=== PATIENT | female | born 1955 | race Caucasian/White ===

== ENCOUNTER 2017-03-03 07:54 | Emergency (ER) | payer MEDICAID ==
[2017-03-03] MEDS ORDERED: Sodium Chloride 0.9% 1,000 ML IV STA (08:12)
--- NOTE | 2017-03-03 08:18 | ED PDOC ---
HPI: Back Time Seen by Provider: 03/03/17 08:06 Chief Complaint (Nursing): Back Pain Chief Complaint (Provider): Back Pain History Per: Patient History/Exam Limitations: no limitations Onset/Duration Of Symptoms: Days Current Symptoms Are (Timing): Still Present Quality Of Discomfort: "Pain" Severity: Mild Previous Symptoms: None Associated Symptoms: None Additional Complaint(s): Patient is a 61 year old female who presents to ED for evaluation of right flank pain with radiation to the abdomen. Patient reports pain is associated with nausea. Denies vomiting, dysuria, hematuria, fever or chills. Of note, patient has a history of kidney stones, states this pain feels similar Past Medical History Reviewed: Historical Data, Nursing Documentation, Vital Signs Vital Signs: Last Vital Signs Temp 98.1 F 03/03/17 08:01 Pulse 88 03/03/17 08:01 Resp 20 03/03/17 08:01 BP 176/86 H 03/03/17 08:01 Pulse Ox 100 03/03/17 08:01 - Medical History PMH: Asthma, Kidney Stones - Surgical History Surgical History: No Surg Hx - Family History Family History: States: No Known Family Hx - Home Medications Home Medications: Ambulatory Orders Medication Instructions Recorded Albuterol HFA [Ventolin HFA 90 2 puff INH PRN PRN 03/03/17 mcg/actuation (8 g)] Alprazolam [Xanax] 0.5 mg PO BID 03/03/17 Ciprofloxacin HCl [Cipro] 500 mg PO BID #20 tab 03/03/17 Oxycodone HCl/Acetaminophen 1 tab PO PRN PRN 03/03/17 [Percocet 10-325 mg Tablet] Tamsulosin [Flomax] 0.4 mg PO DAILY #5 cap 03/03/17 traMADol [Ultram] 50 mg PO Q8 #10 tab 03/03/17 - Allergies Allergies/Adverse Reactions: Allergies Allergy/AdvReac Type Severity Reaction Status Date / Time Penicillins Allergy RASH Verified 03/03/17 08:10 Review of Systems ROS Statement: Except As Marked, All Systems Reviewed And Found Negative Constitutional: Negative for: Fever, Chills Cardiovascular: Negative for: Chest Pain Gastrointestinal: Positive for: Nausea. Negative for: Vomiting, Abdominal Pain Genitourinary Female: Negative for: Dysuria, Frequency, Hematuria Musculoskeletal: Positive for: Back Pain Physical Exam - Reviewed Nursing Documentation Reviewed: Yes Vital Signs Reviewed: Yes - Physical Exam Appears: Positive for: Non-toxic, No Acute Distress Skin: Positive for: Normal Color, Warm Eye Exam: Positive for: Normal appearance Neck: Positive for: Normal Cardiovascular/Chest: Positive for: Regular Rate, Rhythm. Negative for: Murmur Respiratory: Positive for: Normal Breath Sounds. Negative for: Respiratory Distress Gastrointestinal/Abdominal: Positive for: Normal Exam, Tenderness. Negative for : Distended Back: Positive for: Normal Inspection. Negative for: L CVA Tenderness, R CVA Tenderness Extremity: Positive for: Normal ROM Neurologic/Psych: Positive for: Alert, Oriented - Laboratory Results Result Diagrams: 03/03/17 08:30 03/03/17 08:30 - ECG O2 Sat by Pulse Oximetry: 100 (RA) Pulse Ox Interpretation: Normal Medical Decision Making Medical Decision Making: Time: 0800 Initial impression: R/O kidney stone Initial plan: -- CT-abdomen -- CMP -- Urine dip -- CBC -- NSF, Toradol and Zofran Scribe Attestation: Documented by Lila Hinton acting as a scribe for Navin Morrison MD MD Scribe Attestation: All medical record entries made by the Scribe were at my direction and personally dictated by me. I have reviewed the chart and agree that the record accurately reflects my personal performance of the history, physical exam, medical decision making, and the department course for this patient. I have also personally directed, reviewed, and agree with the discharge instructions and disposition. Disposition - Clinical Impression Clinical Impression: Kidney stone on right side - Patient ED Disposition Is Patient to be Admitted: No Counseled Patient/Family Regarding: Studies Performed, Diagnosis, Need For Followup, Rx Given - Disposition Referrals: Panchito Page MD [Staff Provider] - Disposition: Routine/Home Disposition Time: 10:58 Condition: FAIR Prescriptions: Ciprofloxacin HCl [Cipro] 500 mg PO BID #20 tab Tamsulosin [Flomax] 0.4 mg PO DAILY #5 cap traMADol [Ultram] 50 mg PO Q8 #10 tab Instructions: Kidney Stones (ED) Print Language: ETHIOPIAN
[2017-03-03 08:48] LABS: BASO % 0.6 % (0.0-2.0); EOS # 0.1 K/uL (0.0-0.7); EOS % 1.6 % (0.0-4.0); LYMPH # 2.3 K/uL (1.0-4.3); LYMPH % 29.8 % (20.0-40.0); MEAN CELL VOLUME 80.9 fl (81.0-99.0); MEAN CORPUSCULAR HEMOGLOBIN 25.4 pg (27.0-31.0); MEAN CORPUSCULAR HGB CONC 31.5 g/dL (33.0-37.0); MEAN PLATELET VOLUME 11.8 fl (7.2-11.7); MONO # 0.8 K/uL (0.0-0.8); MONO % 10.4 % (0.0-10.0); NEUT # 4.5 K/uL (1.8-7.0); NEUT % 57.6 % (50.0-75.0); RED CELL DISTRIBUTION WIDTH 13.9 % (11.5-14.5); WHITE BLOOD COUNT 7.9 K/uL (4.8-10.8)
[2017-03-03 08:56] LABS: ALKALINE PHOSPHATASE 129 U/L (38-126); ALT/SGPT 49 U/L (9-52); AST/SGOT 48 U/L (14-36); BILIRUBIN,TOTAL 0.6 mg/dl (0.2-1.3); BLOOD UREA NITROGEN 13 mg/dl (7-17); CALCIUM 9.2 mg/dL (8.4-10.2); CARBON DIOXIDE 28 mmol/L (22-30); CHLORIDE 104 mmol/L (98-107); GFR AFRICAN-AMERICAN > 60; GLUCOSE,RANDOM 115 mg/dL (65-105); POTASSIUM 4.1 MMOL/L (3.6-5.0); SODIUM 145 mmol/l (132-148); TOTAL PROTEIN 8.9 G/DL (6.3-8.2)
[2017-03-03 09:35] LABS: ALB/GLOB RATIO 0.9 (1.0-2.1)
--- NOTE | 2017-03-03 09:50 | CT ---
PROCEDURE: CT Abdomen and Pelvis without intravenous or oral contrast HISTORY: r/o kidney stone COMPARISON: None. TECHNIQUE: Contiguous axial images of the abdomen and pelvis without intravenous or oral contrast. Radiation dose: Total exam DLP = 1843.85 mGy-cm. This CT exam was performed using one or more of the following dose reduction techniques: Automated exposure control, adjustment of the mA and/or kV according to patient size, and/or use of iterative reconstruction technique. FINDINGS: LOWER THORAX: Unremarkable. LIVER: Unremarkable. GALLBLADDER AND BILE DUCTS: Unremarkable. PANCREAS: Unremarkable. No ductal dilatation. SPLEEN: Unremarkable. No splenomegaly. ADRENALS: Unremarkable. KIDNEYS AND URETERS: Unilateral, right hydronephrosis and hydroureter. Distal 2 mm calculus right ureter 2.5 cm above the ureterovesical junction. Small upper tract calculi right kidney. Left kidney: Unremarkable without evidence of calculus disease, mass or other pathologic process. BLADDER: Unremarkable. No calculus. REPRODUCTIVE: Unremarkable. APPENDIX: Prior appendectomy. STOMACH AND BOWEL: Unremarkable. No obstruction. No gross mural thickening. PERITONEUM: Unremarkable. No significant fluid collection. No free air. LYMPH NODES: Unremarkable. No enlarged lymph nodes. VASCULATURE: Unremarkable. No aortic aneurysm. BONES: No acute fracture. OTHER FINDINGS: Midline posterior subcutaneous inflammatory change interposed between the skin surface and posterior elements lumbar region. IMPRESSION: Obstructing 2 mm calculus measuring 2 mm. This is within 2.5 cm of the right ureterovesical junction. Proximal hydroureter hydronephrosis.
[2017-03-03 11:15] VITALS: BP 136/88; PULSE 79; RESP 18; TEMP 98.3; O2SAT 99
== END 2017-03-03 11:16 | disposition home or self-care (01) ==
LOC: H.ER 07:54
DX: N20.0 Calculus of kidney (principal); M54.9 Dorsalgia, unspecified; Z88.0 Allergy status to penicillin; J45.909 Unspecified asthma, uncomplicated

== ENCOUNTER 2018-08-16 09:25 | Emergency (ER) | payer MEDICAID ==
[2018-08-16 09:30] VITALS: TEMP 97.9
--- NOTE | 2018-08-16 09:56 | ED PDOC ---
HPI: Back Time Seen by Provider: 08/16/18 09:34 Chief Complaint (Nursing): Back Pain Chief Complaint (Provider): Back Pain History Per: Patient History/Exam Limitations: no limitations Onset/Duration Of Symptoms: Days (x 2) Current Symptoms Are (Timing): Still Present Quality Of Discomfort: "Pain" Additional Complaint(s): 63 year old female with a history kidney stones, asthma, and HTN presents to the ED with right flank pain radiating to her right leg associated with dysuria for the last 2 days. Patient states that this pain does not feel like kidney stones. Denies fever, nausea and vomiting. PMD: Dr.. Amilcar Butcher - Risk Factors AAA Risk Factors: Pos: Older Than 49 Years Of Age, Hypertension Past Medical History Reviewed: Historical Data, Nursing Documentation, Vital Signs Vital Signs: Last Vital Signs Temp 97.9 F 08/16/18 09:29 Pulse 93 H 08/16/18 09:29 Resp 20 08/16/18 09:29 BP 172/104 H 08/16/18 09:29 Pulse Ox 100 08/16/18 09:29 - Medical History PMH: Anxiety, Arthritis, Asthma, HTN, Kidney Stones, Chronic Kidney Disease - Surgical History Surgical History: No Surg Hx - Family History Family History: States: Unknown Family Hx - Home Medications Home Medications: Ambulatory Orders Medication Instructions Recorded Alprazolam [Xanax] 0.5 mg PO BID 03/03/17 Ciprofloxacin HCl [Cipro] 500 mg PO BID #20 tab 03/03/17 Oxycodone HCl/Acetaminophen 1 tab PO PRN PRN 03/03/17 [Percocet 10-325 mg Tablet] RX: Albuterol HFA [Ventolin HFA 90 2 puff INH PRN PRN 03/03/17 mcg/actuation (8 g)] RX: traMADol [Ultram] 50 mg PO Q8 #10 tab 03/03/17 Tamsulosin [Flomax] 0.4 mg PO DAILY #5 cap 03/03/17 RX: traMADol [Ultram] 50 mg PO Q8 #10 tab 08/16/18 Sulfamethoxazole/Trimethoprim 1 tab PO BID #20 tab 08/16/18 [Bactrim DS 800 mg-160 mg] - Allergies Allergies/Adverse Reactions: Allergies Allergy/AdvReac Type Severity Reaction Status Date / Time Penicillins Allergy RASH Verified 08/16/18 09:35 Review of Systems ROS Statement: Except As Marked, All Systems Reviewed And Found Negative Constitutional: Negative for: Fever Gastrointestinal: Negative for: Nausea, Vomiting Genitourinary Female: Positive for: Dysuria Musculoskeletal: Positive for: Back Pain (right flank pain radiating to right leg) Physical Exam - Reviewed Nursing Documentation Reviewed: Yes Vital Signs Reviewed: Yes - Physical Exam Appears: Positive for: Non-toxic, No Acute Distress Head Exam: Positive for: ATRAUMATIC, NORMAL INSPECTION, NORMOCEPHALIC Skin: Positive for: Normal Color, Warm, Dry Eye Exam: Positive for: EOMI, Normal appearance, PERRL Neck: Positive for: Normal, Painless ROM, Supple Cardiovascular/Chest: Positive for: Regular Rate, Rhythm. Negative for: Murmur Respiratory: Positive for: Normal Breath Sounds. Negative for: Respiratory Distress Gastrointestinal/Abdominal: Positive for: Normal Exam, Soft. Negative for: Tenderness Back: Positive for: Normal Inspection. Negative for: L CVA Tenderness, R CVA Tenderness, Vertebral Tenderness (midline spinal tenderness or deformity) Extremity: Positive for: Normal ROM (x 4). Negative for: Deformity Neurologic/Psych: Positive for: Alert, Oriented (x 3). Negative for: Motor/Sensory Deficits - ECG O2 Sat by Pulse Oximetry: 100 (RA) Pulse Ox Interpretation: Normal Medical Decision Making Medical Decision Makin Impression: Initial Plan: --Urine dip --Urine cx Scribe Attestation: Documented by Monae Albarran, acting as a scribe for Navin Morrison MD Provider Scribe Attestation: All medical record entries made by the Scribe were at my direction and personally dictated by me. I have reviewed the chart and agree that the record accurately reflects my personal performance of the history, physical exam, medical decision making, and the department course for this patient. I have also personally directed, reviewed, and agree with the discharge instructions and disposition. Disposition - Clinical Impression Clinical Impression: Low back pain, UTI (urinary tract infection) - Patient ED Disposition Is Patient to be Admitted: No - Disposition Referrals: [facility] [Outside] Disposition: Routine/Home Disposition Time: 11:00 Condition: FAIR Prescriptions: Sulfamethoxazole/Trimethoprim [Bactrim DS 800 mg-160 mg] 1 tab PO BID #20 tab RX: traMADol [Ultram] 50 mg PO Q8 #10 tab Instructions: Urinary Tract Infections in Adults, Low Back Pain (DC) Forms: [facility] (Occitan) Print Language: SETSWANA
[2018-08-16 10:52] VITALS: BP 134/92; PULSE 78; RESP 19
[2018-08-16 11:26] VITALS: O2SAT 100
== END 2018-08-16 12:32 | disposition home or self-care (01) ==
LOC: H.ER 09:25
DX: N39.0 Urinary tract infection, site not specified (principal); M54.5 Low back pain

== ENCOUNTER 2019-01-07 12:36 | Emergency (ER) | payer MEDICAID ==
[2019-01-07 13:15] VITALS: RESP 18
--- NOTE | 2019-01-07 14:23 | ED PDOC ---
HPI: Psych/Substance Abuse Time Seen by Provider: 01/07/19 12:56 Chief Complaint (Nursing): Anxiety Chief Complaint (Provider): anxiety History Per: Patient History/Exam Limitations: no limitations Onset/Duration Of Symptoms: Hrs Current Symptoms Are (Timing): Still Present Associated Symptoms: Anxiety. denies: Suicidal Thoughts, Suicidal Plan Additional Complaint(s): Melodie Wright is a 63 year old female, with a past medical history of depression and anxiety, who presents to the emergency department for evaluation after she had a panic attack while driving today. Patient states episodes don't last long and only has them when feeling stressed. Patient reports recently feeling stressed because a close friend is near . She reports having panic attacks occasionally once a month and is currently taking Xanax 0.5mg but only takes it as needed. She took no medications prior to arrival. She denies any suicidal or homicidal ideation, no auditory or visual hallucinations. No further medical complaints. PMD: Effie Gage Past Medical History Reviewed: Historical Data, Nursing Documentation, Vital Signs Vital Signs: Last Vital Signs Temp 98.6 F 01/07/19 13:11 Pulse 103 H 01/07/19 13:11 Resp 18 01/07/19 13:11 BP 165/100 H 01/07/19 13:11 Pulse Ox 99 01/07/19 13:11 - Medical History PMH: Anxiety, Arthritis, Asthma, HTN, Kidney Stones, Chronic Kidney Disease - Surgical History Surgical History: No Surg Hx - Family History Family History: States: Unknown Family Hx - Social History Current smoker - smoking cessation education provided: No Alcohol: None Drugs: Denies - Home Medications Home Medications: Ambulatory Orders Medication Instructions Recorded Alprazolam [Xanax] 0.5 mg PO BID 03/03/17 Ciprofloxacin HCl [Cipro] 500 mg PO BID #20 tab 03/03/17 Oxycodone HCl/Acetaminophen 1 tab PO PRN PRN 03/03/17 [Percocet 10-325 mg Tablet] RX: Albuterol HFA [Ventolin HFA 90 2 puff INH PRN PRN 03/03/17 mcg/actuation (8 g)] RX: traMADol [Ultram] 50 mg PO Q8 #10 tab 03/03/17 Tamsulosin [Flomax] 0.4 mg PO DAILY #5 cap 03/03/17 RX: traMADol [Ultram] 50 mg PO Q8 #10 tab 08/16/18 Sulfamethoxazole/Trimethoprim 1 tab PO BID #20 tab 08/16/18 [Bactrim DS 800 mg-160 mg] - Allergies Allergies/Adverse Reactions: Allergies Allergy/AdvReac Type Severity Reaction Status Date / Time Penicillins Allergy RASH Verified 08/16/18 09:35 Review of Systems ROS Statement: Except As Marked, All Systems Reviewed And Found Negative Psych: Positive for: Anxiety. Negative for: Depression, Suicidal ideation (or homicidal ideation), Other (auditory or visual hallucinations) Physical Exam - Reviewed Nursing Documentation Reviewed: Yes Vital Signs Reviewed: Yes - Physical Exam Comments: GENERAL APPEARANCE: Patient is awake, alert, oriented x 3, in no acute distress. Tearful. SKIN: Warm, dry; (-) cyanosis ENMT: Mucous membranes moist. Airway patent: (-) stridor. NECK: Supple, FROM HEART AND CARDIOVASCULAR: (+) Tachycardic (-) murmur CHEST AND RESPIRATORY: (-) rales, (-) rhonchi, (-) wheezes; breath sounds equal. Lungs clear to auscultation. Respirations nonlabored. ABDOMEN: Soft, (-) distention, (-) tenderness, (-) guarding. NEURO AND PSYCH: Mental status as above. Affect: Anxious, (-) facial asymmetry. Answers questions appropriately. Gait: steady. Speech: clear. - ECG O2 Sat by Pulse Oximetry: 99 (RA) Pulse Ox Interpretation: Normal Medical Decision Making Medical Decision Making: Time: 12:55 Initial Impression: Anxiety Initial Plan: --Crisis evaluation as ordered --Xanax 0.25mg PO --Reevaluation 1400 Repeat BP: 129/77 Repeat HR: 80 Per crisis evaluation, patient to be discharged per Dr Mathews with the diagnosis of anxiety. Patient to follow up with her therapist outpatient. On re-evaluation, patient reports improvement of symptoms. On exam, patient remains AAOx3, in no acute distress. Vitals stable. Lab/Diagnostic results d/w the patient in great detail. Diagnosis of anxiety, panic attack d/w the patient. Based on history, exam and diagnostic results, plan will be for outpatient follow up with PMD/psych. Patient instructed to follow-up with pmd / referral provided / the clinic in 1- 2 days without fail. Return to the emergency room at any time for any new or worsening symptoms. Patient states she fully agrees with and understands discharge instructions. States that she agrees with the plan and disposition. Verbalized and repeated discharge instructions and plan. I have given the patient opportunity to ask any additional questions. ----- Scribe Attestation: Documented by Tang Fajardo, acting as a scribe for Patricia Herrera PA-C. Provider Scribe Attestation: All medical record entries made by the Scribe were at my direction and personally dictated by me. I have reviewed the chart and agree that the record accurately reflects my personal performance of the history, physical exam, medical decision making, and the department course for this patient. I have also personally directed, reviewed, and agree with the discharge instructions and disposition. Disposition - Clinical Impression Clinical Impression: Anxiety, Panic attack - Patient ED Disposition Is Patient to be Admitted: No Counseled Patient/Family Regarding: Studies Performed, Diagnosis, Need For Followup - Disposition Referrals: primary, doctor [Other] your, therapist [Other] Disposition: Routine/Home Disposition Time: 14:00 Condition: STABLE Additional Instructions: La atencin mdica de emergencia que recibi hoy se dirigi a gricel sntomas agudos. Si le recetaron algn medicamento, llnelo y tmelo segn las indicaciones. Los sntomas pueden tardar varios armendariz en resolverse. Regrese al Departamento de Emergencias si gricel sntomas empeoran, no mejoran o si tiene otros problemas. Comunquese con fernandez mdico dentro de 2 armendariz para gali nueva evaluacin y rona un seguimiento o llame a zuly de los mdicos / clnicas a los que schmid sido referido y que figuran en el formulario de Informacin de visita al paciente que se incluye en fernandez paquete de steven. Lleve todos los documentos que le entregaron al momento del steven junto con todos los medicamentos que est tomando para fernandez visita de seguimiento. Nuestro tratamiento no puede reemplazar la atencin mdica continua por parte de un proveedor de atencin primaria (PCP) fuera del departamento de emergencias. Instructions: Panic Disorder, Anxiety, Adult (DC) Forms: [facility] (Algerian) Print Language: MALTESE - POA Present On Arrival: None
[2019-01-07 14:51] VITALS: BP 129/77; PULSE 80; TEMP 97.7
[2019-01-07 14:54] VITALS: O2SAT 99
== END 2019-01-07 14:58 | disposition home or self-care (01) ==
LOC: H.ER 12:36
DX: F41.0 Panic disorder [episodic paroxysmal anxiety] (principal)